=== PATIENT | male | born 1980 | race American Indian/Alaskan Native ===

== ENCOUNTER 2020-09-19 19:04 | Emergency (ER) | payer SELFPAY ==
[2020-09-19] MEDS ORDERED: MORPHINE 2 MG/1 ML INJ IV ONE (20:27)
[2020-09-19] MEDS ORDERED: ONDANSETRON 4 MG/2 ML INJ IV ONE (20:27)
[2020-09-19 20:29] LABS: Basophils % (Auto) 0.6 % (0.0-1.8); Eosinophils # (Auto) 0.2 K/mm3 (0.0-0.4); Eosinophils % (Auto) 1.9 % (0.0-4.3); Hemoglobin 14.7 gm/dl (11.8-15.2); Lymphocytes # (Auto) 1.2 K/mm3 (1.2-5.4); Lymphocytes % (Auto) 14.1 % (13.4-35.0); Mean Corpuscular HGB Conc 35 % (32-34); Mean Corpuscular Volume 97 fl (84-94); Monocytes # (Auto) 0.7 K/mm3 (0.0-0.8); Platelet Count 322 K/mm3 (140-440); Red Blood Count 4.33 M/mm3 (3.65-5.03); Red Cell Distribution Width 13.5 % (13.2-15.2)
--- NOTE | 2020-09-19 20:38 | Emergency Department Report ---
ED Fall HPI - General Chief Complaint: Multiple Trauma Stated Complaint: FALL Time Seen by Provider: 09/19/20 20:17 Source: family Mode of arrival: Ambulatory - History of Present Illness Initial Comments: 40-year-old male presents to ED status post fall. Patient states he was helping someone move items and he fell through the floor, approximately 8 feet. Patient denies LOC. Denies denies headache or neck pain. Patient reports pain to the left thigh, right shoulder, right knee. Patient is ambulatory. He arrived to ED via private vehicle. BP is currently elevated. Patient reports he has been out of his lisinopril and HCTZ for several months now. MD Complaint: fall -: This evening Fall From: from height (distance) (8 ft) When Fall Occurred: 1 hour [employer] Fall Witnessed: yes, by bystander Place Fall Occurred: other Loss of Consciousness: none Prolonged Down Time?: no Symptoms Prior to Fall: none Location - Extremities: Left: Thigh, Right: Shoulder, Knee Severity: moderate Associated Symptoms: denies: headache, neck pain, numbness, chest paint, shortness of breath, abdominal pain - Related Data Previous Rx's Medication Instructions Recorded Last Taken Type Cyclobenzaprine [Flexeril] 10 mg PO TID PRN #14 tablet 08/17/16 Unknown Rx HYDROcodone/APAP 5-325 [[place] 1 - 2 each PO Q6HR PRN #14 tablet 08/17/16 Unknown Rx 5/325] Ibuprofen [Motrin 800 MG tab] 800 mg PO Q8HR PRN #20 tablet 08/17/16 Unknown Rx Albuterol Mdi (or & Nicu Only) 2 puff IH QID PRN #1 inhalation 12/03/18 Unknown Rx [ProAir HFA Inhaler] guaiFENesin/CODEINE [Robitussin AC] 10 ml PO TID PRN #100 ml 12/03/18 Unknown Rx Naproxen [Naprosyn] 500 mg PO BID #20 tablet 09/19/20 Unknown Rx hydroCHLOROthiazide [HCTZ] 25 mg PO QDAY #30 tablet 09/19/20 Unknown Rx lisinopriL [Zestril TAB] 20 mg PO QDAY #30 tablet 09/19/20 Unknown Rx methOCARBAMOL [Robaxin TAB] 500 mg PO Q8HR PRN #20 tablet 09/19/20 Unknown Rx traMADoL [Ultram] 50 mg PO Q6HR PRN #7 tablet 09/19/20 Unknown Rx Allergies Allergy/AdvReac Type Severity Reaction Status Date / Time No Known Allergies Allergy Verified 12/03/18 12:57 ED Review of Systems ROS: Stated complaint: FALL Other details as noted in HPI Comment: All other systems reviewed and negative Respiratory: denies: shortness of breath Cardiovascular: denies: chest pain Gastrointestinal: denies: abdominal pain Musculoskeletal: as per HPI. denies: back pain Neurological: denies: headache, weakness, numbness ED Past Medical Hx - Past Medical History Previous Medical History?: Yes Hx Hypertension: Yes (diet controlled) Additional medical history: Bronchitis - Surgical History Past Surgical History?: No - Social History Smoking Status: Current Every Day Smoker Substance Use Type: None - Medications Home Medications: Home Medications Medication Instructions Recorded Confirmed Last Taken Type Cyclobenzaprine [Flexeril] 10 mg PO TID PRN #14 tablet 08/17/16 Unknown Rx HYDROcodone/APAP 5-325 [[place] 1 - 2 each PO Q6HR PRN #14 tablet 08/17/16 Unknown Rx 5/325] Ibuprofen [Motrin 800 MG tab] 800 mg PO Q8HR PRN #20 tablet 08/17/16 Unknown Rx Albuterol Mdi (or & Nicu Only) 2 puff IH QID PRN #1 inhalation 12/03/18 Unknown Rx [ProAir HFA Inhaler] guaiFENesin/CODEINE [Robitussin AC] 10 ml PO TID PRN #100 ml 12/03/18 Unknown Rx Naproxen [Naprosyn] 500 mg PO BID #20 tablet 09/19/20 Unknown Rx hydroCHLOROthiazide [HCTZ] 25 mg PO QDAY #30 tablet 09/19/20 Unknown Rx lisinopriL [Zestril TAB] 20 mg PO QDAY #30 tablet 09/19/20 Unknown Rx methOCARBAMOL [Robaxin TAB] 500 mg PO Q8HR PRN #20 tablet 09/19/20 Unknown Rx traMADoL [Ultram] 50 mg PO Q6HR PRN #7 tablet 09/19/20 Unknown Rx ED Physical Exam - General Limitations: No Limitations General appearance: alert, in no apparent distress - Head Head exam: Present: atraumatic, normocephalic - Eye Eye exam: Present: normal appearance, EOMI - ENT ENT exam: Present: mucous membranes moist - Neck Neck exam: Present: normal inspection, full ROM. Absent: tenderness - Respiratory Respiratory exam: Present: normal lung sounds bilaterally. Absent: respiratory distress, chest wall tenderness - Cardiovascular Cardiovascular Exam: Present: regular rate, normal rhythm - GI/Abdominal GI/Abdominal exam: Present: soft. Absent: distended, tenderness - Extremities Exam Extremities exam: Present: other (Tenderness and decreased range of motion to the right shoulder, no deformity noted; abrasion to left lateral thigh, range of motion intact; tenderness to right knee, painful flexion on exam, no swelling or deformity noted.) - Back Exam Back exam: Present: normal inspection. Absent: tenderness, paraspinal tenderness, vertebral tenderness - Neurological Exam Neurological exam: Present: alert, oriented X3, CN II-XII intact. Absent: motor sensory deficit - Psychiatric Psychiatric exam: Present: normal affect, normal mood - Skin Skin exam: Present: warm, dry, intact, normal color ED Course Vital Signs 09/19/20 09/19/20 09/19/20 20:01 21:06 22:22 Temperature 98.3 F Pulse Rate 76 68 Respiratory 20 18 Rate Blood Pressure 188/118 199/119 O2 Sat by Pulse 96 96 Oximetry ED Medical Decision Making - Lab Data Result diagrams: 09/19/20 20:21 09/19/20 20:21 - Radiology Data Radiology results: report reviewed, image reviewed - Medical Decision Making 40-year-old male status post fall through the floor approximately 8 feet. Patie nt denies any LOC, headache, neck pain, or back pain. Patient has no neuro deficits on exam. He reports pain to his right shoulder, right knee, and left thigh. Left thigh has abrasion present. All imaging is unremarkable and show no acute abnormalities. Patient given pain medication and is feeling much better at this time. He is ambulatory. He will be discharged with prescriptions. Outpatient follow-up advised, return precautions given. - Differential Diagnosis Fracture, sprain, contusion Critical care attestation.: If time is entered above; I have spent that time in minutes in the direct care of this critically ill patient, excluding procedure time. ED Disposition Clinical Impression: Fall, Contusion of right shoulder, Contusion of left thigh, Contusion of right knee, Uncontrolled hypertension Disposition: TO HOME OR SELFCARE Is pt being admited?: No Condition: Stable Instructions: How to Use Cold Therapy, [id number], Contusion, [id number], Managing Your Hypertension, Hypertension (ED) Prescriptions: hydroCHLOROthiazide [HCTZ] 25 mg PO QDAY #30 tablet Naproxen [Naprosyn] 500 mg PO BID #20 tablet methOCARBAMOL [Robaxin TAB] 500 mg PO Q8HR PRN #20 tablet PRN Reason: Muscle Spasm traMADoL [Ultram] 50 mg PO Q6HR PRN #7 tablet PRN Reason: Pain lisinopriL [Zestril TAB] 20 mg PO QDAY #30 tablet Referrals: PRIMARY CARE, [Primary Care Provider] - 3-5 Days [facility] [Provider Group] - 3-5 Days [facility] [place] [Outside] - 3-5 Days Time of Disposition: 22:45
[2020-09-19 20:43] LABS: Alanine Aminotransferase 46 units/L (7-56); Albumin 4.4 g/dL (3.9-5); BUN/Creatinine Ratio 17; Blood Urea Nitrogen 17 mg/dL (9-20); Calcium 9.6 mg/dL (8.4-10.2); Hemolysis Index 11
[2020-09-19] MEDS ORDERED: LISINOPRIL 20 MG TAB PO ONE (21:17)
[2020-09-19] MEDS ORDERED: hydroCHLOROthiazide 25 MG TAB PO ONE (21:17)
--- NOTE | 2020-09-19 22:03 | XRay Report ---
LEFT FEMUR 2 VIEW(S) INDICATION / CLINICAL INFORMATION: fall, pain COMPARISON: None available. FINDINGS: BONES / JOINT(S): No acute fracture or subluxation. No significant arthritis. SOFT TISSUES: No significant abnormality. ADDITIONAL FINDINGS: None. Signer Name: Oz Rocha MD Signed: 09/19/2020 9:58 PM Workstation Name: [id number]
--- NOTE | 2020-09-19 22:10 | XRay Report ---
RIGHT KNEE 3 VIEW(S) INDICATION / CLINICAL INFORMATION: fall, pain COMPARISON: None available. FINDINGS: BONES / JOINT(S): No acute fracture or subluxation. No significant arthritis. SOFT TISSUES: No significant abnormality. ADDITIONAL FINDINGS: None. IMPRESSION: No acute osseous findings in the right knee. Signer Name: Ananda Fuentes MD Signed: 09/19/2020 10:06 PM Workstation Name: [id number]
--- NOTE | 2020-09-19 22:11 | XRay Report ---
RIGHT SHOULDER 3 VIEW(S) INDICATION / CLINICAL INFORMATION: fall, pain COMPARISON: None available. FINDINGS: BONES / JOINT(S): No acute fracture or subluxation. No significant arthritis. SOFT TISSUES: No significant abnormality. ADDITIONAL FINDINGS: None. IMPRESSION: No acute osseous findings in the right shoulder. Signer Name: Ananda Fuentes MD Signed: 09/19/2020 10:06 PM Workstation Name: [id number]
[2020-09-19 22:25] VITALS: BP 199/119
== END 2020-09-19 23:05 | disposition home or self-care (01) ==
LOC: ED 19:04
DX: S40.011A Contusion of right shoulder, initial encounter (principal); S80.01XA Contusion of right knee, initial encounter; S70.12XA Contusion of left thigh, initial encounter; I10 Essential (primary) hypertension; W19.XXXA Unspecified fall, initial encounter; Y93.89 Activity, other specified; Y92.89 Other specified places as the place of occurrence of the external cause; Y99.8 Other external cause status
CPT/HCPCS: 36415; 73030; 73552; 73562; 80053; 85025; 96374; 96375; 99284; J2270; J2405

== ENCOUNTER 2020-10-24 14:34 | Emergency (ER) | payer SELFPAY ==
--- NOTE | 2020-10-24 15:04 | Emergency Department Report ---
ED ENT HPI - General Chief complaint: Sore Throat Stated complaint: SORE THROAT Time Seen by Provider: 10/24/20 15:00 Source: patient Mode of arrival: Ambulatory Limitations: No Limitations - Related Data Previous Rx's Medication Instructions Recorded Last Taken Type Cyclobenzaprine [Flexeril] 10 mg PO TID PRN #14 tablet 08/17/16 Unknown Rx HYDROcodone/APAP 5-325 [[place] 1 - 2 each PO Q6HR PRN #14 tablet 08/17/16 Unknown Rx 5/325] Ibuprofen [Motrin 800 MG tab] 800 mg PO Q8HR PRN #20 tablet 08/17/16 Unknown Rx Albuterol Mdi (or & Nicu Only) 2 puff IH QID PRN #1 inhalation 12/03/18 Unknown Rx [ProAir HFA Inhaler] guaiFENesin/CODEINE [Robitussin AC] 10 ml PO TID PRN #100 ml 12/03/18 Unknown Rx Naproxen [Naprosyn] 500 mg PO BID #20 tablet 09/19/20 Unknown Rx hydroCHLOROthiazide [HCTZ] 25 mg PO QDAY #30 tablet 09/19/20 Unknown Rx lisinopriL [Zestril TAB] 20 mg PO QDAY #30 tablet 09/19/20 Unknown Rx methOCARBAMOL [Robaxin TAB] 500 mg PO Q8HR PRN #20 tablet 09/19/20 Unknown Rx traMADoL [Ultram] 50 mg PO Q6HR PRN #7 tablet 09/19/20 Unknown Rx Allergies Allergy/AdvReac Type Severity Reaction Status Date / Time No Known Allergies Allergy Verified 12/03/18 12:57 ED Dental HPI - General Chief complaint: Sore Throat Stated complaint: SORE THROAT Time Seen by Provider: 10/24/20 15:00 Source: patient Mode of arrival: Ambulatory Limitations: No Limitations - Related Data Previous Rx's Medication Instructions Recorded Last Taken Type Cyclobenzaprine [Flexeril] 10 mg PO TID PRN #14 tablet 08/17/16 Unknown Rx HYDROcodone/APAP 5-325 [[place] 1 - 2 each PO Q6HR PRN #14 tablet 08/17/16 Unknown Rx 5/325] Ibuprofen [Motrin 800 MG tab] 800 mg PO Q8HR PRN #20 tablet 08/17/16 Unknown Rx Albuterol Mdi (or & Nicu Only) 2 puff IH QID PRN #1 inhalation 12/03/18 Unknown Rx [ProAir HFA Inhaler] guaiFENesin/CODEINE [Robitussin AC] 10 ml PO TID PRN #100 ml 12/03/18 Unknown Rx Naproxen [Naprosyn] 500 mg PO BID #20 tablet 09/19/20 Unknown Rx hydroCHLOROthiazide [HCTZ] 25 mg PO QDAY #30 tablet 09/19/20 Unknown Rx lisinopriL [Zestril TAB] 20 mg PO QDAY #30 tablet 09/19/20 Unknown Rx methOCARBAMOL [Robaxin TAB] 500 mg PO Q8HR PRN #20 tablet 09/19/20 Unknown Rx traMADoL [Ultram] 50 mg PO Q6HR PRN #7 tablet 09/19/20 Unknown Rx Allergies Allergy/AdvReac Type Severity Reaction Status Date / Time No Known Allergies Allergy Verified 12/03/18 12:57 ED Review of Systems ROS: Stated complaint: SORE THROAT Other details as noted in HPI ED Past Medical Hx - Past Medical History Previous Medical History?: Yes Hx Hypertension: Yes (diet controlled) Additional medical history: Bronchitis - Surgical History Past Surgical History?: No - Social History Smoking Status: Current Every Day Smoker Substance Use Type: None - Medications Home Medications: Home Medications Medication Instructions Recorded Confirmed Last Taken Type Cyclobenzaprine [Flexeril] 10 mg PO TID PRN #14 tablet 08/17/16 Unknown Rx HYDROcodone/APAP 5-325 [[place] 1 - 2 each PO Q6HR PRN #14 tablet 08/17/16 Unknown Rx 5/325] Ibuprofen [Motrin 800 MG tab] 800 mg PO Q8HR PRN #20 tablet 08/17/16 Unknown Rx Albuterol Mdi (or & Nicu Only) 2 puff IH QID PRN #1 inhalation 12/03/18 Unknown Rx [ProAir HFA Inhaler] guaiFENesin/CODEINE [Robitussin AC] 10 ml PO TID PRN #100 ml 12/03/18 Unknown Rx Naproxen [Naprosyn] 500 mg PO BID #20 tablet 09/19/20 Unknown Rx hydroCHLOROthiazide [HCTZ] 25 mg PO QDAY #30 tablet 09/19/20 Unknown Rx lisinopriL [Zestril TAB] 20 mg PO QDAY #30 tablet 09/19/20 Unknown Rx methOCARBAMOL [Robaxin TAB] 500 mg PO Q8HR PRN #20 tablet 09/19/20 Unknown Rx traMADoL [Ultram] 50 mg PO Q6HR PRN #7 tablet 09/19/20 Unknown Rx ED Physical Exam - General Limitations: No Limitations ED Course Vital Signs 10/24/20 14:53 Temperature 98.0 F Pulse Rate 72 Respiratory 20 Rate Blood Pressure 177/106 [Right] O2 Sat by Pulse 98 Oximetry Critical care attestation.: If time is entered above; I have spent that time in minutes in the direct care of this critically ill patient, excluding procedure time. ED Disposition Condition: Stable
--- NOTE | 2020-10-24 16:13 | Emergency Department Report ---
ED ENT HPI - General Chief complaint: Sore Throat Stated complaint: SORE THROAT Time Seen by Provider: 10/24/20 15:00 Source: patient Mode of arrival: Ambulatory Limitations: No Limitations - History of Present Illness MD complaint: sore throat, difficulty swallowing -: Gradual, days(s) Location: throat Severity: severe Severity scale (0 -10): 10 Quality: aching, constant Consistency: constant Improves with: none Worsens with: swallowing, eating Associated Symptoms: pain with swallowing, sore throat, other (spitting and increased drooling). denies: fever - Related Data Previous Rx's Medication Instructions Recorded Last Taken Type Cyclobenzaprine [Flexeril] 10 mg PO TID PRN #14 tablet 08/17/16 Unknown Rx HYDROcodone/APAP 5-325 [[place] 1 - 2 each PO Q6HR PRN #14 tablet 08/17/16 Unknown Rx 5/325] Ibuprofen [Motrin 800 MG tab] 800 mg PO Q8HR PRN #20 tablet 08/17/16 Unknown Rx Albuterol Mdi (or & Nicu Only) 2 puff IH QID PRN #1 inhalation 12/03/18 Unknown Rx [ProAir HFA Inhaler] guaiFENesin/CODEINE [Robitussin AC] 10 ml PO TID PRN #100 ml 12/03/18 Unknown Rx Naproxen [Naprosyn] 500 mg PO BID #20 tablet 09/19/20 Unknown Rx hydroCHLOROthiazide [HCTZ] 25 mg PO QDAY #30 tablet 09/19/20 Unknown Rx lisinopriL [Zestril TAB] 20 mg PO QDAY #30 tablet 09/19/20 Unknown Rx methOCARBAMOL [Robaxin TAB] 500 mg PO Q8HR PRN #20 tablet 09/19/20 Unknown Rx traMADoL [Ultram] 50 mg PO Q6HR PRN #7 tablet 09/19/20 Unknown Rx Amoxicillin [Amoxicillin TAB] 875 mg PO BID 7 Days #1 tablet 10/24/20 Unknown Rx Allergies Allergy/AdvReac Type Severity Reaction Status Date / Time No Known Allergies Allergy Verified 10/24/20 16:21 ED Dental HPI - General Chief complaint: Sore Throat Stated complaint: SORE THROAT Time Seen by Provider: 10/24/20 15:00 Source: patient Mode of arrival: Ambulatory Limitations: No Limitations - Related Data Previous Rx's Medication Instructions Recorded Last Taken Type Cyclobenzaprine [Flexeril] 10 mg PO TID PRN #14 tablet 08/17/16 Unknown Rx HYDROcodone/APAP 5-325 [[place] 1 - 2 each PO Q6HR PRN #14 tablet 08/17/16 Unknown Rx 5/325] Ibuprofen [Motrin 800 MG tab] 800 mg PO Q8HR PRN #20 tablet 08/17/16 Unknown Rx Albuterol Mdi (or & Nicu Only) 2 puff IH QID PRN #1 inhalation 12/03/18 Unknown Rx [ProAir HFA Inhaler] guaiFENesin/CODEINE [Robitussin AC] 10 ml PO TID PRN #100 ml 12/03/18 Unknown Rx Naproxen [Naprosyn] 500 mg PO BID #20 tablet 09/19/20 Unknown Rx hydroCHLOROthiazide [HCTZ] 25 mg PO QDAY #30 tablet 09/19/20 Unknown Rx lisinopriL [Zestril TAB] 20 mg PO QDAY #30 tablet 09/19/20 Unknown Rx methOCARBAMOL [Robaxin TAB] 500 mg PO Q8HR PRN #20 tablet 09/19/20 Unknown Rx traMADoL [Ultram] 50 mg PO Q6HR PRN #7 tablet 09/19/20 Unknown Rx Amoxicillin [Amoxicillin TAB] 875 mg PO BID 7 Days #1 tablet 10/24/20 Unknown Rx Allergies Allergy/AdvReac Type Severity Reaction Status Date / Time No Known Allergies Allergy Verified 10/24/20 16:21 ED Review of Systems ROS: Stated complaint: SORE THROAT Other details as noted in HPI Comment: All other systems reviewed and negative Constitutional: fever (subjective fevers). denies: chills Eyes: denies: eye pain, eye discharge, vision change ENT: throat pain. denies: ear pain Respiratory: denies: cough, shortness of breath, wheezing Cardiovascular: denies: chest pain, palpitations Endocrine: no symptoms reported Gastrointestinal: denies: abdominal pain, nausea, diarrhea Genitourinary: denies: urgency, dysuria Musculoskeletal: denies: back pain, joint swelling, arthralgia Skin: denies: rash, lesions Neurological: denies: headache, weakness, paresthesias Psychiatric: denies: anxiety, depression Hematological/Lymphatic: denies: easy bleeding, easy bruising ED Past Medical Hx - Past Medical History Previous Medical History?: Yes Hx Hypertension: Yes (diet controlled) Additional medical history: Bronchitis - Surgical History Past Surgical History?: No - Social History Smoking Status: Current Every Day Smoker (black and miles daily) Substance Use Type: None - Medications Home Medications: Home Medications Medication Instructions Recorded Confirmed Last Taken Type Cyclobenzaprine [Flexeril] 10 mg PO TID PRN #14 tablet 08/17/16 Unknown Rx HYDROcodone/APAP 5-325 [[place] 1 - 2 each PO Q6HR PRN #14 tablet 08/17/16 Unknown Rx 5/325] Ibuprofen [Motrin 800 MG tab] 800 mg PO Q8HR PRN #20 tablet 08/17/16 Unknown Rx Albuterol Mdi (or & Nicu Only) 2 puff IH QID PRN #1 inhalation 12/03/18 Unknown Rx [ProAir HFA Inhaler] guaiFENesin/CODEINE [Robitussin AC] 10 ml PO TID PRN #100 ml 12/03/18 Unknown Rx Naproxen [Naprosyn] 500 mg PO BID #20 tablet 09/19/20 Unknown Rx hydroCHLOROthiazide [HCTZ] 25 mg PO QDAY #30 tablet 09/19/20 Unknown Rx lisinopriL [Zestril TAB] 20 mg PO QDAY #30 tablet 09/19/20 Unknown Rx methOCARBAMOL [Robaxin TAB] 500 mg PO Q8HR PRN #20 tablet 09/19/20 Unknown Rx traMADoL [Ultram] 50 mg PO Q6HR PRN #7 tablet 09/19/20 Unknown Rx Amoxicillin [Amoxicillin TAB] 875 mg PO BID 7 Days #1 tablet 10/24/20 Unknown Rx ED Physical Exam - General Limitations: No Limitations ED Course Vital Signs 10/24/20 10/24/20 14:53 17:10 Temperature 98.0 F Pulse Rate 72 78 Respiratory 20 16 Rate Blood Pressure 177/106 187/112 [Right] O2 Sat by Pulse 98 100 Oximetry - Reevaluation(s) Reevaluation #1: 10/24/20 20:01 rapid strep negative. Reevaluation #2: 10/24/20 19:[address] neck was reviewed and the findings are remarkable for soft tissue swelling in the palate teen tonsil regions right greater than left. Phlegmon or early abscess formation is seen in the right palatine tonsillar region bilobed connection collection noted. The 2 lobes of the collection measure approximately 11 mm and 17 mm in the maximum dimension no fluid collections are maintained within the tonsillar region. There is mild edema in the right pharyngeal space. There is not a complete well-defined rim of enhancement at this time. Reevaluation #3: 10/24/20 20:13 peritonsillar abscess was drained, re procedure note. penicillin given. 10/24/20 20:17 - I & D Right Jaw Site: peritonsillar abscess Blade Size: 26 gauge needle Progress: The right peritonsillar abscess was aspirated. 26guage needle was used. A right alveolar block was used with 3 ccs of lidocaine. Scant drainage was noted, purulent and bloody. measuring 0.5cc. patient tolerated the procedure well. ED Medical Decision Making - Lab Data Result diagrams: 10/24/20 16:36 10/24/20 16:36 - Medical Decision Making Patient is a 40-year-old male with a past medical history of hypertension and seasonal allergies who is also a current everyday smoker who presents to emergency room for evaluation sore throat. His symptoms have been ongoing for approximately 3 to 4 days. He endorses subjective fevers but was afebrile here on ED arrival. Patient had concerning findings which included drooling, pain with swallowing. His physical exam was remarkable for posterior oropharyngeal swelling and erythema. No clear abscess was visualized. CT soft tissue neck and basic labs were ordered. Viscous lidocaine provided for pain. Studies ordered to rule out Carter's angina versus peritonsillar abscess versus retropharyngeal abscess. Dispo pending ED work-up. Critical care attestation.: If time is entered above; I have spent that time in minutes in the direct care of this critically ill patient, excluding procedure time. ED Disposition Clinical Impression: Peritonsillar abscess, Sore throat Disposition: - TO HOME OR SELFCARE Is pt being admited?: No Does the pt Need Aspirin: No Condition: Good Instructions: Peritonsillar Abscess, [id number], Pharyngitis, [id number] Prescriptions: Amoxicillin [Amoxicillin TAB] 875 mg PO BID 7 Days #1 tablet Referrals: PRIMARY CARE,MD [Primary Care Provider] - 3-5 Days Time of Disposition: 20:18
[2020-10-24] MEDS ORDERED: LIDOCAINE VISCOUS 2% 15 ML ORAL LIQD PO ONE (16:19)
[2020-10-24] MEDS ORDERED: hydroCHLOROthiazide 25 MG TAB PO ONE (16:40)
[2020-10-24 17:14] LABS: Alanine Aminotransferase 22 units/L (7-56); Albumin 4.2 g/dL (3.9-5); BUN/Creatinine Ratio 13; Blood Urea Nitrogen 13 mg/dL (9-20); Calcium 9.8 mg/dL (8.4-10.2); Hemolysis Index 7
[2020-10-24 17:25] LABS: Basophils % (Auto) 0.2 % (0.0-1.8); Eosinophils # (Auto) 0.2 K/mm3 (0.0-0.4); Eosinophils % (Auto) 1.4 % (0.0-4.3); Hematocrit 44.7 % (35.5-45.6); Hemoglobin 15.3 gm/dl (11.8-15.2); Lymphocytes # (Auto) 1.3 K/mm3 (1.2-5.4); Lymphocytes % (Auto) 9.4 % (13.4-35.0); Mean Corpuscular HGB Conc 34 % (32-34); Mean Corpuscular Volume 97 fl (84-94); Monocytes # (Auto) 1.2 K/mm3 (0.0-0.8); Monocytes % (Auto) 8.6 % (0.0-7.3); Platelet Count 365 K/mm3 (140-440); Red Blood Count 4.61 M/mm3 (3.65-5.03); Red Cell Distribution Width 13.6 % (13.2-15.2)
--- NOTE | 2020-10-24 19:26 | Cat Scan Report ---
CT neck w con INDICATION / CLINICAL INFORMATION: 40 years Male; posterior pharynx swelling. TECHNIQUE: Contiguous thin cut axial images obtained through the neck following IV contrast. Sagittal and yadav l reconstructions performed by the technologist. All CT scans at this location are performed using CT dose reduction for ALARA by means of automated exposure control. COMPARISON: None available. FINDINGS: Significant soft tissue swelling seen in the palatine tonsillar regions-right greater than left. Phlegmon/early abscess formation is seen in the right palatine tonsillar region-bilobed collect ion noted. The 2 lobes of the collection measure approximately 11 mm and 17 mm in maximum dimension. No fluid collections are maintained within the tonsillar region. There is mild edema in the right par apharyngeal space. There is not a complete, well-defined rim of enhancement at this time. There is mild edema extending into the submandibular space on the right. No well-circumscribed fluid collection identified. There may be minimal retropharyngeal space edema, which is presumably reactive . Certainly, no retropharyngeal abscess is identified. Reactive lymph nodes are identified in the right level 1 right level 2 regions. No signs of suppurati ve node appreciated. MUCOSAL SPACE: Otherwise, the nasopharynx, vallecula, oral cavity and floor of mouth, hypopharynx, an d larynx are grossly normal. LYMPH NODES: No other significant adenopathy appreciated. SALIVARY GLANDS: Parotid, submandibular, and visualized sublingual glands are essentially within norm al limits. THYROID GLAND: Unremarkable. PARANASAL SINUSES: Visualized paranasal sinuses and mastoid air cells are essentially clear. SPINE: No significant abnormality of the cervical spine appreciated. VASCULAR STRUCTURES: Vascular structures are grossly normal in appearance. ADDITIONAL FINDINGS: Relatively poor dentition noted. IMPRESSION: 1. Phlegmon/early abscess seen in the right palatine tonsillar region as described above. Reactive ad enopathy noted without evidence of suppurative nodes. Signer Name: Kevin Cox MD, III Signed: 10/24/2020 7:22 PM Workstation Name: [id number]
[2020-10-24] MEDS ORDERED: PENICILLIN G BENZATHINE 1.2 MILLION UNIT/2 ML INJ IM ONE (19:56)
[2020-10-24] MEDS ORDERED: LIDOCAINE (1%) 10 MG/1 ML VIAL 20 ML MDV INFILTRATI ONE (19:58)
[2020-10-24 20:46] VITALS: BP 183/111
== END 2020-10-24 20:45 | disposition home or self-care (01) ==
LOC: ED 14:34
DX: J36 Peritonsillar abscess (principal); Z79.2 Long term (current) use of antibiotics; Z79.899 Other long term (current) drug therapy
CPT/HCPCS: 36415; 42700; 70491; 80053; 85025; 87116; 87430; 96372; 99284; J0561; Q9967